=== PATIENT | male | born 1940 | race Caucasian/White ===

== ENCOUNTER 2017-03-24 06:14 | Day surgery (SDC) | payer MEDICARE, BC ==
--- NOTE | 2017-03-18 00:23 | HP ---
CC: Dr. Covarrubias; Dr. Childress * ADMITTING HISTORY AND PHYSICAL: DATE OF ADMISSION: 03/24/17 ADMITTING DIAGNOSES: Left renal calculi. PLANNED PROCEDURE: Shockwave lithotripsy of left renal calculi. SURGEON: Dr. Childress. HISTORY OF PRESENT ILLNESS: Duglas Alarcon is a 76-year-old gentleman with a history of recurrent renal calculi. He had undergone lithotripsy in 2015 with a good result and had only a residual 3-mm calculus at lower pole of the left kidney. He recently came in on followup and in addition to that 3-mm calculus was now noted to have a 9-mm calculus in the lower pole of the left kidney in addition to small right renal calculi. X-ray was obtained, which to me showed a faint 8 to 9 mm calculus over the lower pole of the left kidney, although this was not reported by the radiologist. I discussed the options of repeat lithotripsy with Duglas and given the size of the calculus, he would like to have this broken up. PAST MEDICAL HISTORY: Significant for: 1. Hypertension. 2. Renal calculi. PAST SURGICAL HISTORY: Significant for: 1. Left stent and lithotripsy in 2014. 2. Bilateral total knee replacement. 3. C7 to T1 disk removal. MEDICATIONS ON ADMISSION: Hytrin 4 mg daily. ALLERGIES: OXYCODONE (hallucinations). SMOKING HISTORY: He is a nonsmoker. REVIEW OF SYSTEMS: He is otherwise in excellent health. There is no history of diabetes mellitus or any other major systemic illness. PHYSICAL EXAMINATION GENERAL: Reveals a pleasant, healthy-appearing gentleman. VITAL SIGNS: Blood pressure is 124/80, pulse 92 per minute, oxygen saturation 99% on room air. RESPIRATORY: Lungs are clear bilaterally. CARDIOVASCULAR: Regular rate and rhythm. S1, S2. ABDOMEN: Soft without masses. IMPRESSION: A 76-year-old gentleman with a 9-mm calculus in the left kidney lower pole. Planned procedure is shockwave lithotripsy of left renal calculus. I have discussed the procedure in detail including possible risks of bleeding , infection, incomplete fragmentation, and obstructing fragments. PLAN: Shockwave lithotripsy, left renal calculi. [id number] #: [id number] [facility]
[~2017-03-24 06:14] MED LIST: Buffered Lidocaine 0.9% SYRIN* 5 ML/SYR SYRINGE INTRADERM ONE; Dexamethasone IV* 4 MG/ML 1 ML (4 MG) IV SLOW PU ONE; Famotidine IV* 10 MG/ML 2 ML (20 mg) IV ONE
[2017-03-24] MEDS ORDERED: Dexamethasone IV* 4 MG/ML 1 ML (4 MG) ONE (06:25)
[2017-03-24] MEDS ORDERED: Buffered Lidocaine 0.9% SYRIN* 5 ML/SYR SYRINGE ONE (06:26)
[2017-03-24] MEDS ORDERED: cefTRIAXone(*) 2 GM ADDV.VIAL IVPB ONE (06:26)
[2017-03-24] MEDS ORDERED: Famotidine IV* 10 MG/ML 2 ML (20 mg) ONE (06:26)
[2017-03-24] MEDS ORDERED: fentaNYL* 50 MCG/ML 2 ML VIAL (100 MCG VIAL) IV PRN (07:21)
[2017-03-24] MEDS ORDERED: fentaNYL* 50 MCG/ML 2 ML VIAL (100 MCG VIAL) ONE (07:40)
[2017-03-24] MEDS ORDERED: Midazolam* 1 MG/ML 2 ML VIAL (2 MG) ONE (07:41)
[2017-03-24] MEDS ORDERED: Propofol* 10 MG/ML 20 ML BTL IV PUSH ONE (08:11)
[2017-03-24] MEDS ORDERED: Furosemide IV* 10 MG/ML 2 ML VIAL (20 MG) ONE (08:11)
[2017-03-24] MEDS ORDERED: Ondansetron INJ* 2 MG/ML VIAL ONE (08:11)
--- NOTE | 2017-03-24 08:17 | RAD ---
Indication: Shock wave lithotripsy. Flat and upright views of the abdomen demonstrates no free air. No dilated loops of bowel are noted. The colon is filled with stool. IMPRESSION: No free air or obstruction is noted.
[2017-03-24 09:46] VITALS: BP 151/93
--- NOTE | 2017-03-25 01:02 | OP ---
OPERATIVE SUMMARY: DATE OF OPERATION: 03/24/17 - SDS DATE OF : 42 SURGEON: Dr. Childress. ANESTHESIOLOGIST: Dr. Chaves. ANESTHESIA: General. PRE-OP DIAGNOSIS: Left renal calculus. POST-OP DIAGNOSIS: Left renal calculus. OPERATIVE PROCEDURE: Shockwave lithotripsy of left renal calculus. COMPLICATIONS: None. POSTOPERATIVE CONDITION: Stable. INDICATIONS: Duglas Alarcon is a 76-year-old gentleman with a history of recurrent renal calculi. He was recently noted to have an approximately 8 to 9 mm calculus in the left kidney and is now being brought in for lithotripsy of the same. DESCRIPTION OF PROCEDURE: After induction of general anesthesia, the patient was placed on the lithotripsy table in a supine position. The calculus, which was faintly opaque, was visualized on fluoroscopic in the lower pole of the left kidney. Shockwave lithotripsy was commenced at a rate of 90 shocks per minute. After the initial 300 shocks, there was a pause in lithotripsy for several minutes in an effort to minimize any potential trauma to the kidney. Lithotripsy was then resumed and a total of 1200 shocks were administered. The patient tolerated the procedure satisfactorily and was transferred back to the recovery area in stable condition. [id number] #: [id number] [facility]
== END 2017-03-24 10:47 | disposition home or self-care (01) ==
LOC: OR 06:14
PROVIDERS: ATTEND Urology
DX: N20.0 Calculus of kidney (principal); I10 Essential (primary) hypertension; Z87.891 Personal history of nicotine dependence; M19.90 Unspecified osteoarthritis, unspecified site
CPT/HCPCS: 74000; J0696; J1100; J1940; J2250; J2405; J2704; J3010

== ENCOUNTER 2018-11-25 15:09 | Emergency (ER) | payer MEDICARE, BC ==
[2018-11-25 15:31] VITALS: BP 123/73
--- NOTE | 2018-11-25 16:10 | UC ---
Bite Injury/Animal HPI - HPI Summary HPI Summary: 77-year-old male presents with report of a mouse bite to his right little finger. States last night he was attempting to get the mouse away from his When he was bit. States it bled quite a bit immediately after the bite but was able to control bleeding with some direct pressure. Unsure of last tetanus. Denies fever, chills, erythema, swelling, pain, or decreased range of motion. - History of Current Complaint Chief Complaint: UCBiteInjury Stated Complaint: MOUSE BITE Time Seen by Provider: 11/25/18 15:49 Hx Obtained From: Patient Pain Intensity: 0 - Allergies/Home Medications Allergies/Adverse Reactions: Allergies Allergy/AdvReac Type Severity Reaction Status Date / Time oxycodone Allergy Altered Verified 11/25/18 15:31 Mental Status Home Medications: Home Medications Tamsulosin HCl [Flomax] 0.4 mg PO 11/25/18 [History] PMH/Surg Hx/FS Hx/Imm Hx Previously Healthy: Yes - Surgical History Surgical History: Yes Surgery Procedure, Year, and Place: 2007 C7-T1 [facility]. 08/2014 BILATERAL TOTAL KNEES [facility]. 01/11/15 KIDNEY STONE/STENT [facility]. 1980s RT KNEE SCOPE [facility]. 2005 left knee scope [facility]. right wrist 2010 [facility]. ankle right surgery 1991 [facility] - Family History Known Family History: Positive: Non-Contributory - Social History Occupation: Employed Full-time Lives: With Family Alcohol Use: Occasionally Alcohol Amount: FEW DRINKS/MONTH Substance Use Type: None Smoking Status (MU): Former Smoker Type: Cigarettes Amount Used/How Often: 2PPD 3 YEARS Have You Smoked in the Last Year: No When Did the Patient Quit Smoking/Using Tobacco: 1963 - Immunization History Most Recent Influenza Vaccination: 06/28/14 Most Recent Tetanus Shot: UNCERTAIN Most Recent Pneumonia Vaccination: 06/28/14 Review of Systems All Other Systems Reviewed And Are Negative: Yes Constitutional: Positive: Negative Skin: Positive: Other - See HPI Respiratory: Positive: Negative Cardiovascular: Positive: Negative Gastrointestinal: Positive: Negative Genitourinary: Positive: Negative Musculoskeletal: Negative: Arthralgia Neurological: Positive: Negative Is Patient Immunocompromised?: No Physical Exam - Summary Physical Exam Summary: GENERAL APPEARANCE: Well developed, well nourished, alert and cooperative, and appears to be in no acute distress. CARDIAC: Normal S1 and S2. No S3, S4 or murmurs. Rhythm is regular. There is no peripheral edema, cyanosis or pallor. Extremities are warm and well perfused. Capillary refill is less than 2 seconds. Peripheral pulses intact. LUNGS: Clear to auscultation without rales, rhonchi, wheezing or diminished breath sounds. ABDOMEN: Positive bowel sounds. Soft, nondistended, nontender. No guarding or rebound. No masses or hepatosplenomegally. MUSKULOSKELETAL: ROM intact to all extremities. No joint erythema or tenderness. Normal muscular development. Normal gait. EXTREMITIES: 2 superficial puncture wounds to the volar aspect of the right little finger over the middle phalanx without erythema, edema, or drainage. SKIN: Skin normal color, texture and turgor. Triage Information Reviewed: Yes Vital Signs: Initial Vital Signs Temp 98.3 F 11/25/18 15: Pulse 89 11/25/18 15: Resp 18 11/25/18 15: BP 123/73 11/25/18 15: Pulse Ox 96 11/25/18 15:26 Vital Signs Reviewed: Yes Bite Injury Course/Dx - Course Course Of Treatment: 77-year-old male presents with report of a mouse bite to his right little finger. States last night he was attempting to get the mouse away from his When he was bit. States it bled quite a bit immediately after the bite but was able to control bleeding with some direct pressure. Unsure of last tetanus. Denies fever, chills, erythema, swelling, pain, or decreased range of motion. Afebrile. Vital signs stable. Patient had 2 very small superficial puncture wounds to the volar aspect of his right little finger immediately over the middle phalanx without erythema, edema, or drainage. Discussed with patient that since the bite was from a rodent that there is a low risk for rabies transmission. We discussed the risks and benefits of prophylactic antibiotics for infection and he is choosing to defer at this time. His tetanus was updated. He is to follow-up with his primary care provider in 5-7 days for any concerns. Anticipatory guidance and warning symptoms were reviewed with the patient. Verbalizes understanding and agrees with plan of care. - Differential Dx/Diagnosis Differential Diagnosis/HQI/PQRI: Laceration, Puncture, Other Provider Diagnosis: Bitten by mouse Discharge - Sign-Out/Discharge Documenting (check all that apply): Patient Departure All imaging exams completed and their final reports reviewed: No Studies - Discharge Plan Condition: Stable Disposition: HOME Patient Education Materials: Animal Bite (ED) Referrals: Fabiano Covarrubias MD [Primary Care Provider] - 5 Days Additional Instructions: The bite to you are right little finger shows no evidence of infection. Since you are bit by a mouse there is very little concern for the possibility of rabies as there have been no known cases of a rodent transmitting rabies to a human. Clean the wound with a mild soap and water at least once a day. You can apply some antibiotic ointment and keep covered with a Band-Aid. Since you were unsure of your last tetanus we did update this today. Be sure to notify your primary care provider so that they can update your records. Follow-up with your primary care provider in 5-7 days for any problems or concerns. Seek immediate medical attention if you develop a fever greater than 100.5 F, have redness that spreads, red streaking up the arm, swelling of the finger, severe pain, pus draining from the wound, or any worsening of symptoms. - Billing Disposition and Condition Condition: STABLE Disposition: Home - Attestation Statements Provider Attestation: Per institutional requirements, I have reviewed the chart, however, I was not consulted specifically or made aware of this patient by the midlevel provider. I did not personally evaluate, interact with , or disposition this patient.
[2018-11-25] MEDS ORDERED: Tetan/Diph/Pertus SYR(Tdap)* 0.5 ML SYR(BOOSTRIX) use SYR IM ONE (16:34)
== END 2018-11-25 16:46 | disposition home or self-care (01) ==
LOC: UCEAST 15:09
DX: S61.256A Open bite of right little finger without damage to nail, initial encounter (principal); W53.01XA Bitten by mouse, initial encounter; Y92.009 Unspecified place in unspecified non-institutional (private) residence as the place of occurrence of the external cause; Z87.891 Personal history of nicotine dependence
CPT/HCPCS: 90471; 90715; 99211; G0463